=== PATIENT | female | born 1970 | race African-American/Black ===

== ENCOUNTER 2017-03-07 09:02 | Inpatient (IN) | payer OTHER, SELFPAY ==
[2017-03-07 10:01] LABS: Hematocrit 25.1 % (36.0-47.0); Mean Platelet Volume 6.5 fL (7.4-10.4); Red Blood Cell (RBC) Count 3.72 mill/uL (4.20-5.40); White Blood Cell (WBC) Count 6.2 thou/uL (4.8-10.8)
[2017-03-07 10:04] LABS: Anion Gap 11 mmol/L (10-20); BUN (Urea Nitrogen) 9 mg/dL (7.0-18.7); Calc. Creatinine Clearance 0 mL/min (70-130); Calcium 8.8 mg/dL (7.8-10.44); Carbon Dioxide 24 mmol/L (22-29); Chloride 107 mmol/L (98-107); Estimated GFR-MDRD Greater than 90
[2017-03-07 10:09] LABS: Troponin I Less than 0.010 ng/mL (< 0.028)
[2017-03-07 10:30] LABS: #Basophils 0.1 thou/uL (0.0-0.2); #Eosinphils 0.2 thou/uL (0.0-0.7); #Lymphocytes 1.2 thou/uL (1.20-3.40); #Monocytes 0.9 thou/uL (0.11-0.59); #Neutrophils 3.9 thou/uL (1.40-6.50); %Basophils 1.3 % (0.0-1.0); %Eosinophils 2.6 % (0.0-10.0); %Lymphocytes 19.6 % (21.0-51.0); %Monocytes 13.7 % (0.0-10.0)
[2017-03-07 10:31] LABS: Anisocytosis MODERATE=16-30 cells (100X) (0-5/hpf); Hypochromia MODERATE=16-30 cells (100X) (0-5/hpf); Microcytosis MARKED = >30 cells (100X) (0-5/hpf); Polychromasia SLIGHT = 2-3 cells (100X) (0-2/hpf)
[2017-03-07 12:00] VITALS: BMI 33.6
[2017-03-07] MEDS ORDERED: hydrALAZINE 20 MG/ML VIAL SLOW IVP PRN (13:41)
[2017-03-07 13:42] LABS: Iron 11 ug/dL (50-170)
[2017-03-07 13:44] LABS: Troponin I Less than 0.010 ng/mL (< 0.028)
--- NOTE | 2017-03-07 13:59 | HP-2 ---
CODE STATUS: FULL. PRIMARY CARE PHYSICIAN: None. ATTENDING: Dr. Willem Fowler RESIDENT: Dr. Kathy Fatima HISTORIAN: Self. CHIEF COMPLAINT: Dizziness. HISTORY OF PRESENT ILLNESS: This is a 46-year-old female with past medical history of hypertension, anemia and uterine fibroids who presents with weakness, lightheadedness, and dizziness. She report s that she has passed out before, so she got nervous and went to the ER. She has a history of uteri ne fibroids and has really heavy menstrual periods. Her last menstrual period was 1 week ago. She was supposed to get a hysterectomy in 2013, but never ended up doing it. She reports that she feels tired all the time and has palpitations whenever she has these dizzy spells and she also occasional ly gets spots in her vision. She denies any shortness of breath, chest pain, nausea, vomiting, head aches. PAST MEDICAL HISTORY: 1. Uterine fibroid that measured 8.5 cm. 2. Hypertension, not on any medications. 3. Dermoid ovarian cyst and anemia. PAST SURGICAL HISTORY: Lumbar surgery on L4 and L5 and a hysteroscopy. ALLERGIES: No known drug allergies. MEDICATIONS: Takes iron occasionally. FAMILY HISTORY: Daughter with fibroids. SOCIAL HISTORY: Denies tobacco or drug use. She drinks alcohol occasionally. REVIEW OF SYSTEMS: A 12 point review of systems was conducted and was negative, unless otherwise me ntioned in the HPI. PHYSICAL EXAMINATION: VITAL SIGNS: Blood pressure 170/95, pulse 67, respiratory rate 18, temperature 97.3, pulse ox 98% o n room air. Weight 86 kilograms. GENERAL: Alert and oriented x3, no acute distress, well-nourished, appropriately interactive. EYES: Pupils equal, round, reactive to light. Extraocular muscles intact. Conjunctivae within nor mal limits. ENT: Nasal mucosa and oropharynx within normal limits. NECK: Supple, no lymphadenopathy. CARDIOVASCULAR: Regular rate and rhythm. No murmurs, gallops, 2+ radial pedal pulses. RESPIRATORY: Normal effort, no retractions, clear to auscultation bilaterally. SKIN: Cool fingers. No cyanosis or lesions. ABDOMEN: Soft, nontender to palpation. Normoactive bowel sounds. No mass or distention. EXTREMITIES: No clubbing, cyanosis or edema. MUSCULOSKELETAL: Structure and tone within normal limits, 5/5 muscle strength. Full range of motio n. NEUROLOGIC: No focal deficits. Sensation within normal limits. Cranial nerves II-XII intact. PSYCHIATRIC: Appropriate. LABORATORY DATA: WBC 6.2, hemoglobin 6.8, hematocrit 25.1, platelets 347, MCV 67.6. Sodium 138, po tassium 4.1, chloride 107, CO2 24, BUN 9, creatinine 0.66, glucose 93, calcium 8.8. Beta hCG negati ve. EKG normal sinus rhythm. ASSESSMENT AND PLAN: This is a 46-year-old female who presents with: 1. Symptomatic anemia, hemoglobin 6.8, likely iron deficiency anemia secondary to blood loss from t he uterine fibroids. We will give 1 unit of blood. Trend H\T\H 4 hours after transfusion. We will check a transvaginal ultrasound. Consider Gynecology consult if patient starts bleeding again. We will monitor vitals. Monitor on tele. We will check iron studies including ferritin, TIBC, and ir on prior to transfusion. 2. Uterine fibroids. This was found on prior CT scan was 8.5 cm. We will get a transvaginal ultra sound. Trend H\T\H. We will consult Gynecology pending results, consider hysterectomy. 3. Hypertension, not on any meds. We will monitor blood pressure. Consider starting amlodipine 5 mg. We will give hydralazine p.r.n. systolic blood pressure greater than 180. 4. History of dermoid ovarian cyst. We will get a transvaginal ultrasound. 5. VT prophylaxis. We will give sequential compression devices. The patient has hemoglobin of 6.8 and is at high risk of bleeding. DISPOSITION: Admit to tele. Symptomatic medication will be provided. History and physical exam as well as management discussed with Dr. Fowler.
[2017-03-07 16:24] LABS: Troponin I Less than 0.010 ng/mL (< 0.028)
[2017-03-07 21:01] LABS: Hematocrit 28.3 % (36.0-47.0)
[2017-03-08] MEDS ORDERED: Benzonatate 100 MG CAP PO PRN (02:32)
[2017-03-08 06:18] LABS: #Eosinphils 0.2 thou/uL (0.0-0.7); #Lymphocytes 1.6 thou/uL (1.20-3.40); #Neutrophils 4.2 thou/uL (1.40-6.50); %Basophils 0.6 % (0.0-1.0); %Eosinophils 3.2 % (0.0-10.0); %Lymphocytes 22.6 % (21.0-51.0); %Monocytes 13.6 % (0.0-10.0); Hematocrit 28.4 % (36.0-47.0); Mean Platelet Volume 5.9 fL (7.4-10.4); Red Blood Cell (RBC) Count 4.01 mill/uL (4.20-5.40); White Blood Cell (WBC) Count 7.1 thou/uL (4.8-10.8)
--- NOTE | 2017-03-08 06:44 | PDOC.FM ---
- Subjective Subjective: The patient has no complaints. She reports that her fatigue has improved. She is no longer having any dizziness or lightheadedness. She denies any SOB, N/V, Fever, chills, CP, abdominal pain, blurry vision, rashes - Objective MAR Reviewed: Yes Vital Signs & Weight: Vital Signs (12 hours) Temp Pulse Resp BP Pulse Ox 03/08/17 04:00 97.7 F 70 18 120/72 96 03/07/17 20:00 98.9 F 70 18 116/71 Weight Weight 86.183 kg I&O: 03/06/17 03/07/17 03/08/17 06:59 06:59 06:59 Intake Total 940 Output Total 900 Balance 40 Result Diagrams: 03/08/17 05:55 03/07/17 09:45 Phys Exam - Physical Examination Constitutional: NAD HEENT: moist MMs Respiratory: no wheezing, no rales, no rhonchi, clear to auscultation bilateral Cardiovascular: RRR, no significant murmur, no rub, gallop Gastrointestinal: soft, non-tender, no distention, positive bowel sounds Musculoskeletal: no edema, pulses present Neurological: non-focal, moves all 4 limbs Psychiatric: normal affect, A&O x 3 Dx/Plan (1) Blood loss anemia Code(s): D50.0 - IRON DEFICIENCY ANEMIA SECONDARY TO BLOOD LOSS (CHRONIC) Status: Acute Plan: Symptomatic Iron deficiency anemia 2/2 chronic blood loss from heavy menstrual bleedings 2/2 uterine fibroid Hb 6.8 on presentation, improved to 8.2, now 8.0 s/p 1U pRBC's on 03/07 -Transvaginal ultrasound -Recommend iron outpatient (2) Hypertension Code(s): I10 - ESSENTIAL (PRIMARY) HYPERTENSION Status: Acute Qualifiers: Hypertension type: essential hypertension Qualified Code(s): I10 - Essential (primary) hypertension Plan: Patient has h/o HTN, but reports that she has not been on medication. She had elevated BP initially to 170/95 and then 144/81, but they have since been within normal limits. -Amlodipine 5mg -f/u with PCP (3) Uterine fibroid Code(s): D25.9 - LEIOMYOMA OF UTERUS, UNSPECIFIED Status: Acute Qualifiers: Uterine leiomyoma location: unspecified location Qualified Code(s): D25.9 - Leiomyoma of uterus, unspecified Plan: h/o 8.5 cm uterine fibroid causing symptomatic severe iron deficiency anemia -Transvaginal ultrasound -Will likely recommend outpatient gynecology referral for patient to have hysterectomy
[2017-03-08] MEDS ORDERED: Amlodipine 5 MG TAB PO SCH (09:00)
--- NOTE | 2017-03-08 09:32 | ULT ---
PELVIC ULTRASOUND INCLUDING TRANSABDOMINAL AND TRANSVAGINAL AND VASCULAR DUPLEX WITH COLOR AND SPECT RAL DOPPLER IMAGING: Date: 03/08/17 HISTORY: 46-year-old female with known uterine fibroid with symptomatic anemia. FINDINGS: There is marked enlargement of the uterus which measures 11.3 x 7.1 x 8.0 cm, with a 1.0 cm thickene d endometrium. There is a large subserosal or pedunculated fibroid off the uterine fundus which mason ures 6.4 x 7.0 x 11.5 cm. There is some enlargement of the left ovary which measures 2.6 x 2.7 x 4.2 cm with some hyperechoic foci within the ovary, evidence for left ovarian dermoid. There are nando us fibroid masses within the enlarged uterus. Right ovary measures 1.8 x 1.7 x 2.7 cm. Comparison is made to a prior 11/08/16 CT. IMPRESSION: Marked uterine enlargement with numerous intrauterine fibroids, in addition to a very large subseros al or pedunculated fibroid off the uterine fundus, which by itself measures 6.4 x 7.0 x 11.5 cm. Enl arged left adnexa with bilobed hyperechoic foci evidence for adnexal or ovarian dermoid on the left side. Normal right ovary. Vascular flow documented to both ovaries. No evidence for ovarian torsion. POS: MARLENE
[2017-03-08 11:07] VITALS: TEMP 98.4
[2017-03-08 12:26] VITALS: BP 144/82
--- NOTE | 2017-03-08 14:31 | ADD-PRG ---
DATE: 03/08/2017 This is an addendum to the note of Dr. Kathy Fatima. Ms. Loomis is a pleasant 46-year-old black female who has known uterine fibroids and as a result jacinto s had heavy vaginal bleeding intermittently for the last several years. She became very dizzy and w as noted in an outlying clinic to have a hemoglobin level of 6.8. She has been admitted for transfu jayden. She has already received a unit of blood and feels much better. We will likely undergo home later today to follow up with the [facility] [employer] doctor as she needs hysterectomy. This had been scheduled [facility] years ago, but the patient was lost to follow up. In the event, she is clinically hemodynamica lly stable, awake, alert, and we will begin p.o. iron with goals of hemoglobin of 12 and ferritin le beth of 50. Her iron studies were of course consistent with iron deficiency anemia.
--- NOTE | 2017-03-10 18:43 | DIS-2 ---
DATE OF ADMISSION: 03/07/2017 DATE OF DISCHARGE: 03/08/2017 RESIDENT: Kathy Fatima MD ADMITTING ATTENDING: Willem Fowler. DISCHARGE ATTENDING: Jerod Hurt MD. CONSULTATIONS: None. PROCEDURES: One unit of packed red blood cell transfusion. Transvaginal ultrasound showed marked u terine enlargement with numerous uterine fibroids in addition to a very large subserosal or peduncul ated fibroid off the uterine fundus measuring 6.4 x 7.0 x 11.5 cm. Enlarged left adnexa with bilobe d hyperechoic foci evidence for adnexal or ovarian dermoid on the left side. PRIMARY DIAGNOSES: 1. Symptomatic iron deficiency blood loss anemia. 2. Uterine fibroids. 3. Ovarian dermoid cyst. SECONDARY DIAGNOSIS: Hypertension. DISCHARGE MEDICATIONS: Ferrous sulfate 325 mg p.o. b.i.d. DISCONTINUED MEDICATIONS: None. HISTORY OF PRESENT ILLNESS AND HOSPITAL COURSE: This is a 46-year-old female with a past history of iron deficiency anemia and uterine fibroids and ovarian dermoid cysts, who presented to the ED with dizziness and fatigue and was found to have hemoglobin of 6.8. The patient was transfused 1 unit o f packed red blood cells and her hemoglobin improved to 8.2. The next day remained stable around 8. 0. The patient had history of heavy menstrual periods and uterine fibroids with a very large fibroi d. She has been told in the past that she needs to have her uterus removed, but never got this done . The patient is insured and is amenable to outpatient followup. The patient was no longer symptom atic after this transfusion. She intends to follow up with establish care at [facility] that she does not have a primary care physician, then get a gynecology referral. The patient had n o active bleeding at the time of her evaluation as her last menstrual period was about a week ago. The patient was started on iron supplementation. DISPOSITION: Stable. DISCHARGE INSTRUCTIONS: 1. Location: Home. 2. Diet: Regular. 3. Activity: No restrictions. 4. Follow up establish care at [facility] within 1 week.
--- NOTE | 2017-04-27 12:06 | EKG ---
Test Reason : DIZZINESS Blood Pressure : / mmHG Vent. Rate : 070 BPM Atrial Rate : 070 BPM P-R Int : 168 ms QRS Dur : 076 ms QT Int : 384 ms P-R-T Axes : 074 006 036 degrees QTc Int : 414 ms Normal sinus rhythm Nonspecific ST abnormality not present on 10-AUG-2016 EKG Normal ECG Confirmed by KENROY MADRIGAL, CHAYO ([id number]), scientific publications editor FILI EMMANUEL ([id number]) on 04/27/2017 12:06:15 PM Referred By: KENROY Confirmed By:CHAYO JASMINE MD
--- NOTE | 2017-04-27 12:08 | EKG ---
Test Reason : DIZZINESS Blood Pressure : / mmHG Vent. Rate : 069 BPM Atrial Rate : 069 BPM P-R Int : 184 ms QRS Dur : 072 ms QT Int : 386 ms P-R-T Axes : 070 006 028 degrees QTc Int : 413 ms Normal sinus rhythm No ST abnormality Normal ECG Appearance similar to 10-AUG-2016 EKG Confirmed by KENROY MADRIGAL, CHAYO ([id number]), greeting card editor FILI EMMANUEL ([id number]) on 04/27/2017 12:07:57 PM Referred By: KENROY Confirmed By:CHAYO JASMINE MD
== END 2017-03-08 13:10 | disposition home or self-care (01) | DRG 812 ==
LOC: SCSER 09:02 → 2NO 10:46
PROVIDERS: ADMIT Family Medicine; ATTEND Family Medicine
PROC: 30233N1 Transfusion of Nonautologous Red Blood Cells into Peripheral Vein, Percutaneous Approach (ICD-10-PCS; principal; 2017-03-07)
DX: D50.0 Iron deficiency anemia secondary to blood loss (chronic) (principal); I10 Essential (primary) hypertension; D25.2 Subserosal leiomyoma of uterus; D27.1 Benign neoplasm of left ovary; N92.0 Excessive and frequent menstruation with regular cycle
CPT/HCPCS: 36415; 36430; 76856; 80048; 82553; 82728; 83540; 83550; 84484; 84703; 85025; 86850; 86900; 86901; 93005; A4216; P9016

== ENCOUNTER 2017-07-03 11:29 | Emergency (ER) | payer OTHER | END 2017-07-03 12:41 | disposition home or self-care (01) | LOC: SCSER 11:29 | DX: R19.7 Diarrhea, unspecified (principal); R11.0 Nausea; D50.0 Iron deficiency anemia secondary to blood loss (chronic); Z79.899 Other long term (current) drug therapy | CPT/HCPCS: 99283 ==

== ENCOUNTER 2017-09-08 23:25 | Emergency (ER) | payer OTHER, SELFPAY ==
[2017-09-09 00:28] LABS: Hemoglobin 7.5 g/dL (12.0-16.0); Mean Corpuscular HGB CONC 29.6 g/dL (32.0-36.0); Mean Corpuscular Volume 67.6 fl (81.0-99.0); Mean Platelet Volume 6.9 fL (7.4-10.4); Platelet Count 289 thou/uL (130-400); RBC Distribution Width 20.6 % (11.5-14.5); Red Blood Cell (RBC) Count 3.73 mill/uL (4.20-5.40); White Blood Cell (WBC) Count 5.4 thou/uL (4.8-10.8)
[2017-09-09 00:39] LABS: #Basophils 0.1 thou/uL (0.0-0.2); #Eosinphils 0.2 thou/uL (0.0-0.7); #Lymphocytes 1.6 thou/uL (1.20-3.40); #Monocytes 0.6 thou/uL (0.11-0.59); #Neutrophils 2.8 thou/uL (1.40-6.50); %Basophils 1.2 % (0.0-1.0); %Eosinophils 3.9 % (0.0-10.0); %Lymphocytes 30.4 % (21.0-51.0); %Monocytes 11.7 % (0.0-10.0); %Neutrophils 52.7 % (42.0-75.0); Anisocytosis SLIGHT = 6-15 cells (100X) (0-5/hpf); Elliptocytes SLIGHT = 2-5 cells (100X) (0-1/hpf); Hypochromia MODERATE=16-30 cells (100X) (0-5/hpf); MDiff Complete? YES; Microcytosis MODERATE=15-30 cells (100X) (0-5/hpf); Poikilocytosis SLIGHT = 6-15 cells (100X) (0-5/hpf); Reflex for Review?? NO
[2017-09-09 00:46] LABS: ALT (SGPT) 7 U/L (8-55); AST (SGOT) 15 U/L (5-34); Alkaline Phosphatase 82 U/L (40-150); Anion Gap 12 mmol/L (10-20); BUN (Urea Nitrogen) 12 mg/dL (7.0-18.7); Bilirubin, Total 0.4 mg/dL (0.2-1.2); Calc. Creatinine Clearance 0 mL/min (70-130); Calcium 9.5 mg/dL (7.8-10.44); Carbon Dioxide 22 mmol/L (22-29); Chloride 110 mmol/L (98-107); Estimated GFR-MDRD Greater than 90; Globulin 3.4 g/dL (2.4-3.5); Glucose 105 mg/dL (70-105); Potassium 3.8 mmol/L (3.5-5.1); Protein, Total 7.4 g/dL (6.0-8.3); Sodium 140 mmol/L (136-145)
== END 2017-09-09 00:52 | disposition home or self-care (01) ==
LOC: SCSER 23:25
DX: D64.9 Anemia, unspecified (principal); N93.8 Other specified abnormal uterine and vaginal bleeding; Z79.899 Other long term (current) drug therapy
CPT/HCPCS: 80053; 85025; 99284

== ENCOUNTER 2018-07-27 20:54 | Emergency (ER) | payer OTHER ==
[2018-07-27 22:09] LABS: ALT (SGPT) 13 U/L (8-55); AST (SGOT) 18 U/L (5-34); Albumin 4.2 g/dL (3.5-5.0); Alkaline Phosphatase 67 U/L (40-150); Anion Gap 13 mmol/L (10-20); BUN (Urea Nitrogen) 15 mg/dL (7.0-18.7); Bilirubin, Total 0.2 mg/dL (0.2-1.2); Calc. Creatinine Clearance 0 mL/min (70-130); Calcium 10.2 mg/dL (7.8-10.44); Carbon Dioxide 22 mmol/L (22-29); Chloride 108 mmol/L (98-107); Estimated GFR-MDRD Greater than 90; Glucose 83 mg/dL (70-105); Potassium 4.2 mmol/L (3.5-5.1); Protein, Total 7.2 g/dL (6.0-8.3); Sodium 139 mmol/L (136-145)
[2018-07-27 22:11] LABS: #Basophils 0.1 thou/uL (0.0-0.2); #Eosinphils 0.1 thou/uL (0.0-0.7); #Lymphocytes 1.5 thou/uL (1.20-3.40); #Monocytes 0.5 thou/uL (0.11-0.59); #Neutrophils 2.4 thou/uL (1.40-6.50); %Basophils 1.7 % (0.0-1.0); %Eosinophils 3.1 % (0.0-10.0); %Lymphocytes 32.6 % (21.0-51.0); %Monocytes 10.3 % (0.0-10.0); %Neutrophils 52.3 % (42.0-75.0); Anisocytosis SLIGHT = 6-15 cells (100X) (0-5/hpf); Hemoglobin 8.8 g/dL (12.0-16.0); MDiff Complete? YES; Mean Corpuscular HGB CONC 29.4 g/dL (32.0-36.0); Mean Corpuscular Hemoglobin 25.3 pg (27.0-31.0); Mean Corpuscular Volume 86.2 fL (78.0-98.0); Mean Platelet Volume 8.8 fL (7.4-10.4); Platelet Count 160 thou/uL (130-400); RBC Distribution Width 22.1 % (11.5-14.5); Red Blood Cell (RBC) Count 3.46 mill/uL (4.20-5.40); White Blood Cell (WBC) Count 4.6 thou/uL (4.8-10.8)
== END 2018-07-27 22:33 | disposition home or self-care (01) ==
LOC: SCSER 20:54
DX: D50.0 Iron deficiency anemia secondary to blood loss (chronic) (principal); Z79.899 Other long term (current) drug therapy
CPT/HCPCS: 80053; 85025; 86850; 86900; 86901; 93005

== ENCOUNTER 2018-09-08 14:30 | Inpatient (IN) | payer OTHER ==
[2018-09-08 15:08] VITALS: BMI 30.6
[2018-09-09] MEDS ORDERED: Famotidine/PF 20 mg/2ml Vial ONE (06:06)
[2018-09-09] MEDS ORDERED: Gabapentin 300 MG CAP ONE (06:06)
[2018-09-09] MEDS ORDERED: CeleCOXIB 100 MG CAP ONE ×2 (06:06→06:10)
[2018-09-09] MEDS ORDERED: Fentanyl 100 MCG/2 ML VIAL ONE ×2 (06:40→10:51)
[2018-09-09] MEDS ORDERED: Bupivacaine HCl 0.5%/Epinephrine 1:200,000/PF 30 ml Vial ONE (06:51)
[2018-09-09] MEDS ORDERED: Lidocaine 2% Jelly 5 ML TUBE ONE (06:58)
--- NOTE | 2018-09-09 07:34 | HP ---
DATE OF PLANNED PROCEDURE: 09/09/2018. PROCEDURES TO BE PERFORMED: Robotic-assisted total laparoscopic hysterectomy with bilateral salpingectomy with ExCITE retrieval, with possible conversion to laparotomy and total abdominal hysterectomy. SURGEON: Giovany Segura DO, MS HISTORY OF PRESENT ILLNESS: Ms. Mary Jane Loomis is a 48-year-old female patient who was seen and diagnosed with multiple large uterine fibroids and seen in my office last year with medical management. For some time, her bleeding and anemia were well controlled with medical management after history of anemia requiring blood transfusion. Over the past year, the patient reports that her periods have become heavier and she has had increased pelvic pain. She now requests definitive surgical management with hysterectomy. PAST MEDICAL HISTORY: Anemia. CURRENT MEDICATIONS: Ferretts Carbonyl 18 mg chewable iron tablets. ALLERGIES: NO KNOWN DRUG ALLERGIES. NO KNOWN LATEX ALLERGY. PAST SURGICAL HISTORY: Dilation and curettage and unspecified back surgery. SOCIAL HISTORY: Negative for alcohol, tobacco, or drug use. The patient is . FAMILY HISTORY: The patient denies any significant family history or disability. PAST OBSTETRICAL HISTORY: G4, P3-0-1-3 with three vaginal deliveries. The largest baby weighing approximately 7 pounds. GYNECOLOGIC HISTORY: Significant for last menstrual period of August 11, 2018. Severe menstrual cramps, menorrhagia, and dysmenorrhea. Her most recent Pap smear was reported in 2018, completed at [facility] and within normal limits. The patient denies any history of abnormal Pap smears. Denies any history of STD or PID. Denies any known history of endometriosis, infertility, or ovarian cyst. PHYSICAL EXAMINATION: VITAL SIGNS: Height 5 feet 4 inches, weight 184 pounds, BMI 31.6, blood pressure 108/68, pulse 64, respirations 18, O2 saturation 99%. GENERAL: No acute distress. Alert and oriented. CARDIOVASCULAR: Regular rate and rhythm. LUNGS: Nonlabored breathing. LUNGS: Clear to auscultation bilaterally. ABDOMEN: Enlarged fibroid uterus palpates to just below the umbilicus. : On 06/09/2018, reports normal external female genitalia. Normal vaginal mucosa. Normal cervix. Uterus is nontender and enlarged. Adnexa, no adnexal masses or tenderness. Bladder and urethra are normal. SKIN: Normal. No rashes. MENTAL STATUS: Appropriate affect and mood. DIAGNOSTIC STUDIES: Preop hemoglobin 10.3. Ultrasound, uterus 11 x 8 cm with three fibroids, one approximately 3 x 3 cm, one 3.5 x 3.5 cm and then the largest 6.5 x 6 cm. Normal-appearing left and right ovaries. ASSESSMENT AND PLAN: Ms. Mary Jane Loomis is a 48-year-old female with a history of anemia, past history of blood transfusion and multiple fibroids causing menorrhagia and dysmenorrhea and pelvic pain with the patient now requesting definitive surgical management with hysterectomy. The operative plan has been discussed with the patient in detail with the plan to begin the procedure with laparoscopy with possible total laparoscopic hysterectomy with retrieval of the uterine specimen using the ExCITE technique with possible conversion to total abdominal hysterectomy if indicated. I have also discussed the risks and benefits of ovarian preservation and if the ovaries appear normal, the patient would like to avoid oophorectomy. We also discussed a plan for enhanced recovery pathway, pre and postop, and the ON-Q pump, postoperative, for pain management. The patient's questions have been answered in detail and to her satisfaction. She understands the risks and benefits of the procedure to include, but not limited to, bleeding, infection, damage to intraabdominal or pelvic organs, possible need to convert to laparotomy, possible inability to fully diagnose and treat all conditions at the time of surgery and possible need for future medical and/or surgical management. The patient is scheduled to undergo the aforementioned procedure on 09/09/2018. Job ID: [id number]
[2018-09-09] MEDS ORDERED: Simethicone Chewable 80 MG TAB PO PRN (10:16)
[2018-09-09] MEDS ORDERED: Zolpidem Tartrate 5 MG TAB PO PRN (10:16)
[2018-09-09] MEDS ORDERED: Ondansetron PF 4 MG/2 ML Vial IVP PRN (10:16)
[2018-09-09] MEDS ORDERED: HYDROcodone/Acetaminophen 5/325 mg Tablet PO PRN (10:16)
[2018-09-09] MEDS ORDERED: diphenhydrAMINE 25 MG CAP PO PRN (10:16)
[2018-09-09] MEDS ORDERED: Bisacodyl 10 MG SUPP PR PRN (10:16)
[2018-09-09] MEDS ORDERED: Promethazine HCl 25 MG/ML VIAL IM PRN ×2 (10:16→10:37)
[2018-09-09] MEDS ORDERED: Ropivacaine 0.2% 550 ML 750 ML NERVE BLCK SCH (10:30)
[2018-09-09] MEDS ORDERED: Promethazine HCl 25 MG/ML VIAL SLOW IVP PRN (10:37)
[2018-09-09] MEDS ORDERED: Ondansetron HCl/PF 4 MG/2 ML Vial IVP PRN (10:37)
[2018-09-09] MEDS ORDERED: Ropivacaine HCl/PF 750 ML in Premix Bag 1 BAG NERVE BLCK SCH (11:00)
[2018-09-09] MEDS ORDERED: Ketorolac Tromethamine 30 MG/ML VIAL IVP SCH (12:00)
[2018-09-09] MEDS: Morphine 4 MG/ML VIAL SLOW IVP PRN ×2 (12:47→20:42)
--- NOTE | 2018-09-09 13:25 | OP ---
DATE OF PROCEDURE: 09/09/2018 PREOPERATIVE DIAGNOSES: Large fibroid uterus, failed medical management. POSTOPERATIVE DIAGNOSES: Large fibroid uterus, failed medical management. PROCEDURES PERFORMED: Diagnostic laparoscopy with conversion to laparotomy for total abdominal hysterectomy with partial bilateral salpingectomy and placement of ON-Q nerve block.. [facility] UNDERWRITER: Kalyani Parada MD COMPLICATIONS: None. EBL: 900 mL. URINE OUTPUT DURING THE CASE: Approximately 200 mL. FINDINGS: 1. Laparoscopic findings with enlarged uterus and a large pedunculated 20 cm mass filling the left pelvis completely and filling the midline overlying the fibroid uterus. Laparotomy findings large 20 cm pedunculated soft fibroid likely undergoing degeneration, enlarged fibroid uterus with multiple palpable fibroids noted. Normal appearing ovaries bilaterally. Adhered fimbriated ends of the fallopian tubes to the ovaries bilaterally. Otherwise, normal-appearing fallopian tubes. 2. Hemostatic vaginal cuff and surgical pedicles. DESCRIPTION OF PROCEDURE: The patient was taken back to the OR with IV fluids running. When she was in the OR, she was placed in dorsal supine position and general anesthesia was obtained. Once the patient was asleep, the abdomen and vagina were prepped and draped in normal fashion for gynecologic laparoscopy. A Granados catheter was placed into the bladder after the surgeon was gowned and gloved and drained approximately 150 mL of urine. An operative speculum was placed into the vagina. The cervix was easily visualized and grasped with single-tooth tenaculum. The cervix was serially dilated to allow for passage of Melanie-Shital manipulator tip. Uterus sounded to approximately 8 cm. Melanie-Shital manipulator was assembled with an 8 cm tip and a 4 cm cup and placed into the uterus and vagina in normal fashion for uterine manipulation. The surgeon's gloves were then changed and attention was turned to the laparoscopic portion of the case. The uterus was noted to palpate just below the umbilicus approximately 2 to 3 cm above the supraumbilical fold. Local anesthesia was placed underneath the skin. A 12 mm skin incision was made with a scalpel and a Veress needle was placed through the skin incision. The abdomen was then insufflated without difficulty. After the abdomen was insufflated, a 12 mm trocar was placed into the distended abdomen. The laparoscope was then placed through this port with the above findings noted. Above the uterus, would manipulate laterally. The large pedunculated mass extending off the fundus of the uterus was noted to fill the pelvis and did not manipulate despite manipulation of the uterus. The pelvic sidewalls were not able to be future freely visualized nor were the uterine blood supply. At this time, decision was made to convert the procedure to an abdominal hysterectomy. The laparoscope and trocar were removed. The gas was released from the abdomen. A vertical midline incision was made approximately 2 cm above the pubic symphysis to approximately 2 cm below the umbilicus. The skin incision was made with a scalpel and carried down through the subcutaneous tissue to the fascia with Bovie with Bovie cauterization. Once the fascia was reached, it was incised in the midline and extended the length of the incision. The muscles were bluntly and the peritoneum was bluntly entered. The peritoneum was stretched laterally. The tight bands of the transversalis fascia and peritoneum were dissected with Metzenbaum scissors to allow for visualization of the specimen and placement of an O'Gold O'Johnson retractor. The uterine fibroids specimen was delivered through the abdominal incision. The O'Gold O' Johnson retractor was then placed in the abdominal cavity in routine fashion and after packing the bowel away superiorly with moist towels and lap sponges. At this time, we felt the hysterectomy would best be completed after amputation of the 20 cm a superior mass to any clamps were placed at the base of the fibroid and the mass, which transected with Bovie cauterization and handed off for pathologic review. The fundal aspect of the uterus with a fibroid was removed was then oversewn with Vicryl suture. After hemostasis was obtained, attention was turned to the hysterectomy portion of the procedure. Beginning on the patient's left side, the left ovary and fallopian tube were inspected. The left fallopian tube was noted to be edematous at the fimbriated end and densely adhered to the left ovary. For this reason, a complete salpingectomy was not performed. Mabel clamp was placed over the utero-ovarian ligament and fallopian tube. The back clamp was placed. This pedicle was then transected with curved Miranda scissors and the pedicle was sewn with a suture as well as a tie on a pass. After the ovarian fimbriated ends of the tubal specimen were freed from the uterus, a fell away to the left pelvic sidewall. A small area of bleeding was noted between the ovary and the fimbriae and this area was oversewn with Vicryl suture. The round ligament on the patient's left side was then identified, grasped with the bag caught and suture-ligated with Vicryl suture. The left round ligament was then incised with bipolar cautery and divided into anterior posterior leaf. The round ligament was then dissected down toward the level of the uterine artery. Uterine artery was then skeletonized, clamped with a Shahab clamp, transected, and suture ligated. An additional Mabel clamp was placed below the uterine artery dissection for hemostasis of accessory vessels that were noted between a posterior fibroid and the junction of the uterus to the cervix. After hemostasis was noted on the left side, attention was turned to the patient's right side. The right fallopian tube was also noted to be densely adhered to the right ovary at the fimbriated end. The majority of the fallopian tube was transected with the utero uterine or ovarian pedicle. After this pedicle was cut and was suture-ligated with the ovary and fimbriated into the tubal specimen. The following weight to the patient's pelvic sidewall the uterus were identified on both sides and noted to be away from the planned dissection areas. The round ligament on the patient's right side was then identified, suture ligated and transected. The divided down into anterior and posterior leaves towards the level of the uterine artery. The bladder flap was taken down anteriorly from both the right and left sides of the uterine specimen. The bladder was then dissected away from the cervix. Layer by layer using Metzenbaum scissors and bipolar cautery. The uterine artery was then clamped and transected on the patient's right side was then suture ligated. The bladder flap was then further dissected away from the cervix. At this point, it was difficult to visualize the full length of the cervix due to the fibroid uterine specimen, so the uterus was then amputated using Bovie cauterization and handed off for pathologic review. The cervical stump was grasped anteriorly and posteriorly with Taiwo clamps and elevated away from the pelvis. The bladder was fairly further dissected down past the level of the cervix. Straight clamps were placed bilaterally between the cervix and the uterine artery. This area was further dissected down and suture ligated. Next, two curved Mabel clamps were placed just below the cervix at the junction of the vagina. Lora scissors were used to transect and remove the cervical stump. After the cervical stump was removed, it was handed off to be included in the pathologic specimen. The vaginal cuff was then closed. A half plaster suture was placed using Vicryl suture at each of the angles of the vaginal closure. A series of interrupted [id number] were placed between the angles to close the vaginal cuff. The vaginal cuff was closed it was noted to be hemostatic. The surgical pedicles and cul-de-sac were copiously irrigated and suctioned dry. No areas of bleeding were noted along the vaginal cuff. A small area of bleeding was noted to continue between the fimbria on the left ovary. This area was oversewn with Vicryl suture after hemostasis was noted. The areas were irrigated again and suctioned dry. FloSeal was applied at the between the vaginal cuff and the bladder flap at the angles of the vaginal closure and along the pelvic side wall dissection. Pressure was applied over the FloSeal for approximately 3 minutes as prescribed. The sponges were removed and no areas of bleeding were noted. The sponges were all removed from the abdominal cavity. The O'Gold O'Johnson retractor was removed. The counts were correct. The peritoneum muscle belly and omentum were inspected with no areas of bleeding noted. The peritoneum was reapproximated with plain gut suture. After the peritoneum was reapproximated, the muscle was inspected and no areas of bleeding were noted. Two ON-Q catheter tips were placed superiorly towards the superior aspect of the incision and directed down between the fascia and the muscle toward the inferior aspect of the incision. After the ON-Q catheter tips were placed, the fascial layer was reapproximated in a running fashion from the corners of the incision and tied together in the midline using #1 PDS suture. After the fascia was closed, the subcutaneous tissue was irrigated and suctioned dry. Any small areas of bleeding were controlled with Bovie cauterization. Vicryl suture was used to reapproximate subcutaneous tissue. The skin was closed with 4-0 Monocryl and dressed with Dermabond dressing. The laparoscopic port site was reapproximated and closed with 4-0 Monocryl was also dressed with Dermabond dressing. The patient tolerated the procedure well. Pictures and findings were discussed with her family member. The patient will be transferred to recover on the 3rd floor today with plans for a slowly advancing her diet and ambulation this evening or tomorrow. Job ID: [id number]
[2018-09-09] MEDS ORDERED: PROPOFOL 200 MG/20 ML VIAL ONE (15:36)
[2018-09-09] MEDS ORDERED: Metoprolol Tartrate 5 MG/5 ML VIAL ONE (15:36)
[2018-09-09] MEDS ORDERED: Ketorolac Tromethamine 30 MG/ML VIAL ONE (15:36)
[2018-09-09] MEDS ORDERED: Glycopyrrolate 0.2 MG/ML 5 ML SYRINGE ONE (15:36)
[2018-09-09] MEDS ORDERED: Ondansetron PF 4 MG/2 ML Vial ONE (15:36)
[2018-09-09] MEDS ORDERED: Lidocaine 1% PF 5 ML VIAL ONE (15:36)
[2018-09-09] MEDS ORDERED: Dexamethasone 20 MG/5 ML VIAL ONE (15:36)
[2018-09-09] MEDS ORDERED: Rocuronium Bromide 10 MG/ML (10ML VIAL) ONE (15:36)
[2018-09-09] MEDS: Ketorolac Tromethamine 30 MG/ML VIAL IVP SCH ×2 (15:57→22:15)
[2018-09-09] MEDS: Sodium Chloride 0.9% 1,000 ML IV SCH ×2 (16:01→23:15)
[2018-09-10] MEDS: Ketorolac Tromethamine 30 MG/ML VIAL IVP SCH ×4 (04:35→23:47)
[2018-09-10] MEDS: Sodium Chloride 0.9% 1,000 ML IV SCH ×2 (04:36→11:54)
[2018-09-10 06:50] LABS: Hemoglobin 7.1 g/dL (12.0-16.0); Mean Corpuscular HGB CONC 31.1 g/dL (32.0-36.0); Mean Corpuscular Hemoglobin 27.7 pg (27.0-31.0); Mean Platelet Volume 9.9 fL (7.4-10.4); Platelet Count 130 thou/uL (130-400); RBC Distribution Width 20.6 % (11.5-14.5); Red Blood Cell (RBC) Count 2.55 mill/uL (4.20-5.40); White Blood Cell (WBC) Count 7.5 thou/uL (4.8-10.8)
--- NOTE | 2018-09-10 08:04 | PDOC.EVN ---
Event Note - Event Note Event Note: POD1 SP dx scope-> SIENA S: some discomfort w incision, worse w cough, no NV, no fever or chills, no dizziness but has not gotten out of bed O: VS stable and WNL Gen: NAD Chest: nonlabored breathing Abd: midline incision CDI, OnQ catheters in place and not leaking Ext: moving equally AM Hcb 7.1 A/P: POD1 sp dx scope w SIENA for large fibroid uterus. Hx of anemia and appropriate drop in hemoglobin w intraoperative blood loss. Will monitor for si /sx of anemia, discussed transfusion for symptoms of anemia. Advance orders today.
[2018-09-10] MEDS: HYDROcodone/Acetaminophen 5/325 mg Tablet PO PRN ×2 (08:08→14:36)
[2018-09-11] MEDS: Ketorolac Tromethamine 30 MG/ML VIAL IVP SCH (05:33)
[2018-09-11 08:16] VITALS: BP 124/84; TEMP 99.2
--- NOTE | 2018-09-11 09:24 | PDOC.EVN ---
Event Note - Event Note Event Note: POD2 S: minimal pain, ambulating, no SOB or CP, no dizziness or weakness, no concerns O: Vital Signs (12 hours) Temp Pulse Resp BP Pulse Ox 09/11/18 08:00 99.2 F 68 20 124/84 96 09/11/18 07:52 96 09/11/18 03:39 98.3 F 73 16 124/87 96 09/10/18 23:54 98.8 F 61 16 122/69 96 Weight Weight 184 lb Gen: ambulating to shower Abd: nondistended, incision CDI Ext: moving equally Path pending A/P: POD2 doing well, plan for DC today.
[2018-09-11] MEDS: HYDROcodone/Acetaminophen 5/325 mg Tablet PO PRN (10:21)
[2018-09-14] MEDS ORDERED: Ibuprofen 800 MG TAB PO SCH (22:00)
== END 2018-09-11 11:42 | disposition home or self-care (01) | DRG 743 ==
LOC: SURG A 09-09 05:46 → 3SE 09-09 12:26
PROVIDERS: ADMIT Obstetrics & Gynecology; ATTEND Obstetrics & Gynecology
PROC: 0UT90ZZ Resection of Uterus, Open Approach (ICD-10-PCS; principal; 2018-09-09)
PROC: 0UT20ZZ Resection of Bilateral Ovaries, Open Approach (ICD-10-PCS; 2018-09-09)
PROC: 0UB70ZZ Excision of Bilateral Fallopian Tubes, Open Approach (ICD-10-PCS; 2018-09-09)
PROC: 0UTC0ZZ Resection of Cervix, Open Approach (ICD-10-PCS; 2018-09-09)
PROC: 0UJD4ZZ Inspection of Uterus and Cervix, Percutaneous Endoscopic Approach (ICD-10-PCS; 2018-09-09)
DX: D25.9 Leiomyoma of uterus, unspecified (principal); D64.9 Anemia, unspecified
CPT/HCPCS: 36415; 84703; 85027; 86850; 86900; 86901; 88307; J0131; J0670; J0690; J1100; J1885; J2001; J2270; J2405; J2704; J2795; J3010; Q0163; S0028

== ENCOUNTER 2019-10-22 09:56 | Outpatient (CLI) | payer BC ==
--- NOTE | 2019-10-23 16:04 | MMO ---
Bilateral MAMMO Bilat Screen [facility]. CLINICAL HISTORY: Patient is 49 years old and is seen for screening. VIEWS: The views performed were: bilateral craniocaudal with tomosynthesis and bilateral mediolateral oblique with tomosynthesis. This study has been interpreted with the assistance of computer-aided detection. MAMMOGRAM FINDINGS: There are scattered fibroglandular densities. There are no suspicious masses, suspicious calcifications, or new areas of architectural distortion. IMPRESSION: THERE IS NO MAMMOGRAPHIC EVIDENCE OF MALIGNANCY. A ROUTINE FOLLOW-UP MAMMOGRAM IN 1 YEAR IS RECOMMENDED. THE RESULTS OF THIS EXAM WERE SENT TO THE PATIENT. ACR BI-RADS Category 1 - Negative MAMMOGRAPHY NOTE: 1. A negative mammogram report should not delay a biopsy if a dominant of clinically suspicious mass is present. 2. Approximately 10% to 15% of breast cancers are not detected by mammography. 3. Adenosis and dense breasts may obscure an underlying neoplasm. Reported by: KEKE PRESTON MD Electonically Signed: [id number]
== END 2019-10-22 09:57 | disposition home or self-care (01) ==
LOC: BICMAMMO 09:56
PROVIDERS: ATTEND Family Medicine
DX: Z12.31 Encounter for screening mammogram for malignant neoplasm of breast (principal)
CPT/HCPCS: 77063; 77067